=== PATIENT | male | born 1980 | race Caucasian/White ===

== ENCOUNTER 2016-11-09 06:06 | Emergency (ER) | payer SELFPAY ==
[~2016-11-09] VITALS: Ht 180.3 cm; Wt 90.0 kg
[2016-11-09 06:08] VITALS: BP 119/69; PULSE 84; RESP 18; TEMP 98; O2SAT 98
[2016-11-09] MEDS ORDERED: ACETAMINOPHEN 325 MG TAB PO ONE (06:30)
[2016-11-09] MEDS ORDERED: AMOXICILLIN/CLAVULANATE K 875 MG TAB PO ONE (06:30)
--- NOTE | 2016-11-09 06:43 | RADRPT ---
EXAM DATE/TIME: 11/09/2016 06:33 [facility] COMPARISON: No previous studies available for comparison. INDICATIONS : Pain in right foot dog bite. MEDICAL HISTORY : None. SURGICAL HISTORY : None. ENCOUNTER: Initial ACUITY: 1 day PAIN SCORE: 0/10 LOCATION: Right foot FINDINGS: Three views of the right foot demonstrate no fracture or dislocation. The Lisfranc joint appears inta ct. Mineralization is within normal limits and there is no significant arthropathy. No soft tissue ab normality or radiopaque foreign body is identified. CONCLUSION: No acute abnormality is identified. Jimbo Hernandes MD on November 09, 2016 at 6:40 Board Certified Radiologist. This report was verified electronically.
--- NOTE | 2016-11-09 06:44 | RADRPT ---
EXAM DATE/TIME: 11/09/2016 06:29 [facility] COMPARISON: No previous studies available for comparison. INDICATIONS : Right leg pain, dog bite. MEDICAL HISTORY : None. SURGICAL HISTORY : None. ENCOUNTER: Initial ACUITY: 1 day PAIN SCORE: 0/10 LOCATION: Right tib fib FINDINGS: 4 views of the right leg demonstrate no fracture or dislocation. There is 16mm eccentric area of scle rosis laterally in the distal fibular metaphysis. There is soft tissue air in the proximal medial rig ht leg. No radiopaque foreign body is identified. CONCLUSION: Soft tissue air in the proximal medial right leg. No radiopaque foreign body is identified. Jimbo Hernandes MD on November 09, 2016 at 6:41 Board Certified Radiologist. This report was verified electronically.
[2016-11-09] MEDS ORDERED: AUGM875T3 PO (07:29)
--- NOTE | 2016-11-09 07:30 | PD ---
HPI Chief Complaint: Bite or Sting Time Seen by Provider: 06:16 Travel History International Travel<30 days: No Contact w/Intl Traveler<30days: No Traveled to known affect area: No History of Present Illness HPI The patient is a 36 year old male who presents to the [facility] emergency department with a history of being bitten by dog prior to arrival. The patient was bitten on the right calf and right foot. The patient was reportedly running from the police. The patient was bitten by a police dog. According to the police the patient has a warrant out for his arrest. The patient began to run into the [place]. The patient has multiple abrasions to his trunk and bilateral lower extremities related to being scratched multiple times in the [place]. The patient reports that his tetanus was updated within the last 5 years. He denies having any other injuries. He denies having any chest pain, chest pressure, shortness of breath, headache, head injury, loss of consciousness, neck pain, abdominal pain, vomiting, or diarrhea. Otherwise on review of systems he denies any recent fevers or cough or congestion. He denies having any urinary symptoms or neurologic symptoms. [facility] Past Medical History Narrative Medical The patient's past medical history is reportedly none. Medical History: Denies Significant Hx Diminished Hearing: No Tetanus Vaccination: < 5 Years Influenza Vaccination: No Past Surgical History Narrative Surgical The patient's past surgical history is reportedly none. Surgical History: No Previous Surgery Social History Alcohol Use: Yes (OCCASSIONALLY) Tobacco Use: Yes (1 PPD) Substance Use: No Allergies-Medications (Allergen,Severity, Reaction): Coded Allergies: No Known Allergies (Unverified , 11/09/16) Reported Meds & Prescriptions Reported Meds & Active Scripts Active No Active Prescriptions or Reported Medications Review of Systems Except as stated in HPI: all other systems reviewed are Neg General / Constitutional: No: Fever Eyes: No: Visual changes HENT: No: Headaches Cardiovascular: No: Chest Pain or Discomfort Respiratory: No: Shortness of Breath Gastrointestinal: No: Abdominal Pain Genitourinary: No: Dysuria Musculoskeletal: Positive: Myalgias, Pain Skin: No Rash Neurologic: No: Weakness Psychiatric: No: Depression Endocrine: No: Polydipsia Hematologic/Lymphatic: No: Easy Bruising Physical Exam Narrative General: The patient is well-developed well-nourished male in no acute distress. Head and Neck exam: Head is normocephalic atraumatic. Eyes: EOMI, pupils are equal round and reactive to light. Nose: Midline septum with pink mucous membranes Mouth: Dentition unremarkable. Moist mucus membranes. Posterior oropharynx is not erythematous. No tonsillar hypertrophy. Uvula midline. Airway patent. Neck: No palpable lymphadenopathy. No nuchal rigidity. No thyromegaly. No spinous process tenderness to palpation. No step-off or crepitus. No erythema or ecchymosis. Cardiovascular: Regular rate and rhythm without murmurs, gallops, or rubs. Lungs: Clear to auscultation bilaterally. No wheezes, rhonchi, or rales. Abdomen: Soft, without tenderness to palpation in all 4 quadrants of the abdomen. No guarding, rebound, or rigidity. Normal bowel sounds are audible. No tenderness on palpation of McBurney's point. Extremities: No clubbing, cyanosis, or edema. 2+ pulses in all 4 extremities. Bilateral lower extremities have scratches, superficial abrasions noted area the area of interest is the right lower extremity. The patient was bitten on the right proximal calf. The patient has a 2-1/2 cm wound along the medial aspect of the anterior calf, a 1 cm wound just proximal to this. Along the posterior aspect of the calf the patient is noted to have 2-1 cm lacerations, one 0.5 cm laceration. The final laceration is noted to be along the dorsal aspect of the right foot and is 1.5 cm. Further exploration of these wounds reveals no tendon involvement. Back: No spinous process tenderness to palpation. No step-off or crepitus. No costovertebral angle tenderness to palpation. The patient has abrasions on bilateral flank and posterior thorax, worse on the right compared to the left. Neurologic Exam: Grossly nonfocal. Skin Exam: No rash noted. The patient is covered in abrasions mainly along the lower extremities, however also involving the posterior thorax worse on the right compared to the left. The patient is covered in debris and dirt. Data Data Last Documented VS Vital Signs Date Time Temp Pulse Resp B/P (MAP) Pulse Ox O2 Delivery O2 Flow Rate FiO2 11/09/16 06:08 98.0 84 18 119/69 (86) 98 Orders Orders Amoxicil-Clavulanate (Augmentin) (11/09/16 06:30) Acetaminophen (Tylenol) (11/09/16 06:30) Foot, Complete (Itz7ril) (11/09/16 06:16) Tibia/Fibula (Ap/Lat) (11/09/16 06:16) MDM Medical Decision Making Medical Screen Exam Complete: Yes Emergency Medical Condition: Yes Differential Diagnosis Foreign body, versus soft tissue injury, versus tendon laceration, versus neurovascular injury Narrative Course During the course of the patients emergency department visit, the patients history, examination, and differential diagnosis were reviewed with the patient. The patient was showered. The patient was then copiously irrigated along the dog bite wounds with 2 L of normal saline. An x-ray of the foot and tib-fib area was ordered. The patient was initially provided Tylenol 650 by mouth 1, Augmentin 875 by mouth 1. Radiology studies were reviewed and remarkable for a tib-fib x-ray that shows soft tissue air in the proximal medial right leg. No radial pulse radiopaque foreign body is identified. Foot x-ray reveals no acute abnormality. The patient was sutured by me. The patient will be discharged into police custody with a prescription for Augmentin. The patient is resting comfortably and feels better, is alert and in no distress. The patients results and examination findings were discussed with the patient. The repeat examination is unremarkable and benign. The history, exam, diagnostic testing, and current condition do not suggest any significant pathology to warrant further testing, continued ED treatment, admission, or surgical evaluation at this point. The vital signs have been stable. The patient does not have uncontrollable pain, intractable vomiting, or other significant symptoms. The patient's condition is stable and appropriate for discharge. The patient will pursue further outpatient evaluation with a primary care physician or other designated or consulting physician as indicated in the discharge instructions. The patient expressed understanding and was agreeable with this plan. Procedures Procedure Narrative LACERATION LOCATION: Posterior right calf LENGTH: 1 Centimeter NUMBER OF STITCHES/OSMIN: 1 suture LACERATION LOCATION: Posterior right calf LENGTH: 1 cm NUMBER OF STITCHES/OSMIN: 1 suture LACERATION LOCATION: Anterior right malik LENGTH: 2-1/2 cm NUMBER OF STITCHES/OSMIN: 3 sutures LACERATION LOCATION: Anterior right malik LENGTH: 1 cm NUMBER OF STITCHES/OSMIN: 1 suture LACERATION LOCATION: Foot dorsum LENGTH: 1.5 cm NUMBER OF STITCHES/OSMIN: 3 sutures REPAIR: The area of the laceration was prepped with Betadine and sterilely draped. The wounds was copiously irrigated. The laceration was infiltrated with 1% lidocaine with epinephrine. The wound was copiously irrigated and explored without evidence of foreign body, tendon injury or neurovascular injury. The wound was closed using 4-0 Ethilon. This was a single layer repair. A sterile dressing was applied. The patient was advised to keep the dressing clean and dry. Patient tolerated the procedure well. Diagnosis Primary Impression: Dog bite Qualified Codes: W54.0XXA - Bitten by dog, initial encounter Additional Impressions: Laceration of leg, right, multiple sites Qualified Codes: S81.811A - Laceration without foreign body, right lower leg, initial encounter Laceration of right foot Qualified Codes: S91.311A - Laceration without foreign body, right foot, initial encounter Referrals: Primary Care Physician 1 day Additional Instructions: The patient is instructed to have his wounds rechecked in 24 hours. The patient is instructed to have his sutures removed in 7-10 days. Med/Other Pt SpecificInfo: Prescription(s) given Scripts Amoxicillin-Clavulanate (Augmentin) 875-125 Mg Tab 1 TAB PO BID for Infection, #20 TAB 0 Refills Prov: Taylor Collier MD 11/09/16 Disposition: 01 DISCHARGE HOME Condition: Stable Taylor Collier MD Nov 09, 2016 07:30
== END 2016-11-09 08:07 | disposition home or self-care (01) ==
LOC: NEPE 06:06
DX: S81.811A Laceration without foreign body, right lower leg, initial encounter (principal); S91.311A Laceration without foreign body, right foot, initial encounter; W54.0XXA Bitten by dog, initial encounter; Y93.02 Activity, running
CPT/HCPCS: 12002; 73590; 73630